=== PATIENT | female | born 1990 | race Caucasian/White ===

== ENCOUNTER 2018-07-08 14:36 | Emergency (ER) | payer MEDICAID, SELFPAY ==
[2018-07-08 14:37] VITALS: BP 142/94; PULSE 80; RESP 17; TEMP 36.9; O2SAT 97
[2018-07-08 14:38] VITALS: BP 142/92; PULSE 86; RESP 17; TEMP 36.9; O2SAT 95; BMI 44.9
--- NOTE | 2018-07-08 15:04 | EKG12_ITS ---
Test Reason : CP Blood Pressure : / mmHG Vent. Rate : 079 BPM Atrial Rate : 079 BPM P-R Int : 170 ms QRS Dur : 082 ms QT Int : 376 ms P-R-T Axes : 042 021 019 degrees QTc Int : 431 ms Normal sinus rhythm Normal ECG Confirmed by YELENA ROSALES MD ([id number]), dictionary editor JENNIFER KWON ([id number]) on 07/11/2018 10:16:56 AM Referred By: JACK
[2018-07-08] MEDS: 0.9% Normal Saline 1,000 ML 150 ML IV (15:10)
--- NOTE | 2018-07-08 15:10 | RAD_ITS ---
STUDY: X-RAY CHEST REASON FOR EXAM: Female, 27 years old. Chest pain. TECHNIQUE: Single AP portable view of the chest. COMPARISON: Comparison is made with prior study dated August 22, 2017. FINDINGS: EKG electrodes are seen. The lungs are clear and expanded. There is no demonstrated pleural abnormality. Normal size heart. Normal mediastinum and gustavo. Normal visualized pulmonary arteries. Normal visualized aortic arch and descending thoracic aorta. Normal visualized thoracic spine. Normal visualized ribs, clavicles, and shoulders. There is no demonstrated abnormality of the visualized soft tissue structures of the upper abdomen. RAD/Chest 1 View (Portable) IMPRESSION: Normal x-ray examination of the chest. Electronically Signed: Hector Suh MD at 15:27 EST Tel [phone], Service support ,
[2018-07-08 15:28] LABS: Absolute Lymphocyte Count 2.77 X10^3/ul (0.83-4.51); Absolute Neutrophil Count 6.7 X10^3/uL (2.0-7.7); Basophil# 0.03 X10^3/uL; Basophil% 0.3 % (0-1); Eosinophils% 1.9 % (0-5); Hematocrit 42.7 % (37-47); Hemoglobin 14.4 g/dl (12.0-15.0); Lymphocyte # 2.77 X10^3/ul (4.0); Lymphocyte % 26.7 % (19-41); Mean Corp Hgb Conc 33.7 g/gl (32-36); Mean Corpuscular Volume 91.8 fL (81-99); Mean Platelet Vol. 11.2 fl (6.2-12.0); Monocyte# 0.64 X10^3/uL; Monocyte% 6.2 % (0-10); Neutrophil # 6.72 X10^3/uL (2.7-7.7); Neutrophil % 64.7 % (47-70); Platelet Count 312 K/mm3 (150-450); RBC Distribution Width CV 13.2 % (11.6-14.6); RBC Distribution Width SD 43.7 fl (35.1-43.9); Red Blood Count 4.65 M/mm3 (4.2-5.4); White Blood Count 10.4 K/mm3 (4.4-11.0)
[2018-07-08 15:31] LABS: POSITIVE COUNT NO; POSITIVE DIFFERENTIAL NO; POSITIVE MORPHOLOGY NO
[2018-07-08 15:40] LABS: Anion Gap 6 (5-15); BUN 9 mg/dL (7-18); BUN/Creat Ratio 15.8 RATIO (10-20); Calcium,Total 8.9 mg/dL (8.5-10.1); Chloride 101 mmol/L (98-107); Creatinine, Serum 0.57 mg/dL (0.55-1.02); EST Glomerular Filtration Rate 134 mL/min (>60); Est Glom Filt Rate - Afr Amer 162 mL/min (>60); Estimated Creatinine Clearance 137.56 ml/min; Glucose 216 mg/dL (74-106); Potassium 3.8 mmol/L (3.5-5.1); Sodium Level 134 mmol/L (136-145)
[2018-07-08 15:50] LABS: Pregnancy, Serum, hCG Quali. NEGATIVE Negative (0-9 Nonpreg)
--- NOTE | 2018-07-08 16:03 | ED.VISSUMM ---
- ER Visit Summary Date of Service: 07/08/18 Chief Complaint: Chest pain History of Present Illness: The patient is a [address] Conde. She reports that today approximate 130 while she was at rest she had the onset of a left-sided chest pressure. She states that it was 8 out of 10 at worst. States pain is now 2 out of 10 severity and it is a dull, aching pain. States that this was worsened by exertion or breathing. It was relieved by nothing. She was nauseated and lightheaded with this. She denies any vomiting, diaphoresis, shortness of breath. Patient reports that this began after chugging an energy drink. Physical Examination: Vitals: Stable. Afebrile. General: Well-nourished and well-developed. Head: Normocephalic atraumatic. Neck: Supple, no lymphadenopathy. No JVD. Nontender. Cardiovascular: Regular rate and rhythm. No murmurs. Respiratory: No respiratory distress. Clear to auscultation bilaterally. Abdominal: Soft, nontender, nondistended, normal bowel sounds. No guarding, rebound, or peritoneal signs. Back: Nontender. Extremities: Nontender, no edema. Skin: Normal color, no rash. Neurologic: Alert and oriented ?3. Cranial nerves II through XII are intact. Normal strength and sensation. Psych: Normal affect. Test Results: EKG is sinus at 79 with no acute changes. Troponin is negative. test negative. Chem-7 more for sodium 134 and glucose 216. CBC is normal. Chest x-ray is normal. Emergency Department Course and Treatment: Patient rested comfortably while here. She refused pain or nausea medications. Treatment Plan: Patient be discharged instructions to follow-up with her primary care physician 1-2 days if not improving. Return to the emergency department for any worsening symptoms. Disposition: To home in improved and stable condition. Impression: 1. Atypical chest pain. 2. CHAVO score of 0. This note was generated with [employer] dictation software. It may contain incorrect words, spelling, and punctuation that were not noted in review of the chart prior to signing ED Disposition - Plan for ED Patient: Disposition: Home or Assisted Living Chief Complaint: Chest Pain Instructions: ED Chest Pain Atypical Unkn Cause Referrals: Bonilla Conde MD [Primary Care Provider] - As soon as possible
[2018-07-08 16:14] VITALS: BP 147/75; PULSE 81; RESP 16; O2SAT 98
--- OUTSIDE RECORDS SUMMARY | 2018-08-24 22:42 | XMS RPT_ITS ---
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 REPOSITORY Patient Outreach (FPWADS) SOLANGE VIVAR ([id number]) 1990 F Date Time Provider Department 01/22/18 AZEB CERVANTES) FPWADS During your visit today, we recorded the following information about you: Azeb Cervantes MA 01/22/2018 2:56 PM Signed Unable to contact patient. Spoke to Dr. Phillips and wants his name removed as her PCP. Azeb Cervantes MA Allergies As of Date: 01/22/2018 Noted Allergy Reaction BEES 08/26/2012 7 - Swelling Date Reviewed: 09/07/2016 Reviewed by: Iliana Anderson LPN - Fully Assessed Reason for Visit: PHMA/Care Gap Outreach [[id number]] Prescriptions as of 01/22/2018 Sig: CODEINE 10 MG-GUAIFENESIN 100* Take 5 mL by mouth three time* METFORMIN 500 MG TABLET Take 1 tablet by mouth twice * INSULIN DETEMIR (U-100) 100 U* Inject 10 Units subcutaneousl* PEN NEEDLE, DIABETIC 31 GAUGE* Use one needle per dose. NICOTINE 21 MG/24 HR DAILY TR* Apply 1 Patch as directed evan* Problem List As Of Date 01/22/2018 Noted Resolved ATTN DEFICIT W HYPERACT [F90.9] INVALID FOR* Excessive or frequent menstruation [N92.0] INVALID FOR*03/19/2016 Dysmenorrhea [N94.6] INVALID FOR*03/19/2016 Adult BMI >=40 Kg/Sq M INVALID FOR* Morbid obesity (HCC) [E66.01] INVALID FOR*03/19/2016 Impaired Glucose Tolerance [R73.02] INVALID FOR* Dysmetabolic Syndrome X [E88.81] INVALID FOR* Diabetes mellitus type 2, uncontrolled, without*INVALID FOR* More... Hypertension [I10] INVALID FOR* More... Pelvic pain in [O26.899, R10.2] INVALID FOR*12/29/2013 More... Tobacco use in [O99.330] INVALID FOR*12/29/2013 More... Family history of congenital heart defect [Z82.*INVALID FOR*03/19/2016 More... Obesity in [O99.210] INVALID FOR*03/19/2016 Abnormal ultrasound of breast [R92.8] INVALID FOR*03/19/2016 Short interval between pregnancies complicating*INVALID FOR*04/27/2014 More... History of [Z98.891] INVALID FOR*03/19/2016 More... Uncertain dates, antepartum [Z34.90] INVALID FOR*04/27/2014 More... Quit smoking [Z87.891] INVALID FOR*03/19/2016 More... Encounter Status:Closed by AZEB CERVANTES on 01/22/18 XR HUMERUS MINIMUM 2 Observed: 12/27/2017 Status: F Source: [facility] LEFT 7:07 PM [facility] REPOSITORY ORIGINAL XR HUMERUS MINIMUM 2 VIEWS LEFT CLINICAL STATEMENT: pain COMPARISON: None FINDINGS: No acute fracture or dislocation is identified. There is a remote deformity noted at the proximal humerus. There is no radiopaque foreign body. IMPRESSION: No acute fracture or dislocation. Proximal deformity of the humerus from reported previous trauma. I have personally reviewed the images of this examination and agree with the resident's findings and interpretation. Interpreted By: Chalino Shepherd DO Preliminary Report By: Kathy Olson MD Electronically Signed By: Chalino Shepherd DO Dictated Date: 12/27/2017 7:31:47 PM Prelim Date: 12/27/2017 7:32:56 PM Sign Date: 12/27/2017 7:39:29 PM XR SHOULDER MINIMUM 2 Observed: 12/27/2017 Status: F Source: [facility] LEFT 7:07 PM [facility] REPOSITORY ORIGINAL XR SHOULDER MINIMUM 2 VIEWS LEFT CLINICAL STATEMENT: pain/trauma/fall on hyperextended arm COMPARISON: None FINDINGS: There is no evidence of glenohumeral dislocation. The shoulder joint is unremarkable. The proximal humeral shaft appears irregular, secondary to remote healed trauma. Soft tissue structures are unremarkable. IMPRESSION: No evidence of shoulder dislocation. I have personally reviewed the images of this examination and agree with the resident's findings and interpretation. Interpreted By: Chalino Shepherd DO Preliminary Report By: Kathy Olson MD Electronically Signed By: Cora ,Chalino DO Dictated Date: 12/27/2017 7:28:34 PM Prelim Date: 12/27/2017 7:31:18 PM Sign Date: 12/27/2017 7:38:03 PM [facility] OFFICE VISIT Observed: 12/10/2017 Status: F Source: [place] 11:35 AM [facility] REPOSITORY [facility] [address] [place] [address] OFFICE VISIT Date of Service: 12/10/17 MR#: [id number] Acct: [id number] Name: SOLANGE VIVAR Rep #: [id number] : 1990 Provider: YOLANDA Sapp Age/Sex: 27/F Location: [facility] Status: Signed Intake Vital Signs12/10/17 Height 5 ft 5 in 12/10/17 Weight: 274 lb 2 oz 12/10/17 Body Mass Index (BMI) 45.6 12/10/17 Blood Pressure 143/93 Intake Visit Reasons: BLOCKED MILK DUCT Chief Complaint: Blocked Milk Duct Ophthalmic Surgeon Required: No Is patient in pain?: No Allergies venom-honey bee [bee venom (honey bee)] Allergy (Verified 12/10/17 11:10) Anaphylaxis Medications cephalexin 500 mg capsule 500 mg PO Q12H 10 Days #20 cap 12/10/17 [Rx Confirmed 12/10/17] Is last menstrual period known: Yes Last Menstral Period: 11/15/17 Post menopausal: No Patient : No : No PFSH Medical History Gestational diabetes (Acute) Surgical History delivery delivered (Acute) H/O tubal ligation (Acute) History of tonsillectomy (Acute) pins inserted in humerus (Acute) Family History Father Diabetes Hypertension Lupus Cancer bladder Grandfather Heart disease Social History Smoking Status: Never smoker alcohol intake: current details: social substance use type: does not use caffeine: Yes frequency: 3-4 times per week seatbelt use: always do you feel safe at home: Yes additional social history: Rolando- unemployed Patient works at [employer] HPI BLOCKED MILK DUCT : Details: SOLANGE VIVAR is a 27 year old who presents for pain, redness and swelling of right breast X 2 days. Has had abscess a year ago, same are, I AND D per Dr. Fernandez. Told may recur. Had normal imaging at that time. States always gets a lump in that area just prior to menses. Female Reproductive History Last Menstral Period: 11/15/17 Pregancy History 2 Elective abortions Hx Para 2 Spontaneous abortions Past Pregnancies Del. DatName AR/WeeksOutcome Route [facility] Dandy Williamson LgAnesthesDel LocaProviderFOB e ht en th ia tn Unknown 2012 Ada nna Unknown 2013 [place] Exam Chest Other: Right breast: outer lateral area from 1-5:00 position of areola and out 4cm erythematous, indurated and warm to tough. No fluctuance. Assessment AND Plan Problems 1. Abscess of right breast N61.1 Plan Keflex Rx Warm compresses OTC pain meds Call if worsens or does not respond 48 hours. Medications New: Coding Level of Care Code Off vis,est,level 3 Diagnoses Abscess of right breast N61.1 12/10/17 1135 <Electronically signed by Mali OHARA> Date Mali OHARA Cosigner Signature: Date (if applicable) CC: CNCO Observed: 12/05/2017 Status: COMPLETED Source: [place] 12:00 AM [facility] REPOSITORY Letter Text Dr. Bonilla Phillips [facility] [address] [facility] Office: December 05, 2017 Solange Vivar [address] [facility] [address] Dear Ms. Vivar, Our office has been attempting to reach you by telephone and we were not successful. The phone number we have on file for you is [phone] (home) . We have identified some questions that we would like to discuss to make sure that your health is fully optimized, so I have asked Azeb Cervantes MA to contact you to discuss this further. Please contact her at the direct line listed below at your first convenience to update your demographic information and to discuss your health status. As your primary care physician, I would like to urge you to keep up with optimal health care. Keeping up to date with routine preventive care and best practices can greatly reduce your risk of a brain or heart attack, colon cancer, breast cancer, heart disease, high blood sugar complications and more. Our team is very happy to assist you with discussing or scheduling anything you need. If for any reason you have established with a new primary care physician, please notify my office so that we can update our records to prevent any further erroneous communications to you. Thank you for allowing us to be involved in your care. Sincerely, Fransisco Phillips MD (Signed electronically to expedite mailing) CT SINUS Observed: 10/16/2017 Status: F Source: [facility] 3:25 PM [facility] REPOSITORY ORIGINAL CT SINUS CLINICAL STATEMENT: Clear nose drainage.. COMPARISON: None TECHNIQUE: Axial CT slices through the sinuses were acquired without the administration of IV contrast. Bone and soft tissue algorithms. Coronal and sagittal reformats. This exam was performed according to our departmental dose optimization program, and includes the following measures where applicable: automated exposure control, adjustment of the mAs and/or kVp according to patient size and/or exam, and an iterative reconstruction algorithm. FINDINGS:The cribriform plate and lateral lamella are unremarkable. The tegmen appears intact. Right: The frontal sinus is clear and the frontal outflow tract is patent. There is a rightward draining interfrontal sinus septal cell. There is no significant mucosal thickening within the ethmoid air cells. The maxillary sinus contains a large polyp or mucous retention cyst and a small amount of aerated secretions. The maxillary outflow tract is patent. The sphenoid sinus is clear. The sphenoid ostium and sphenoethmoidal recess are clear. Left: The frontal sinus is clear and the frontal outflow tract is patent. There is no significant mucosal thickening within the ethmoid air cells. The maxillary sinus and the maxillary outflow tract is patent. The sphenoid sinus is clear. The sphenoid ostium and sphenoethmoidal recess are clear. There are no air-fluid levels or osteoneogenesis. No nasal masses. The nasal septum is deviated to the right without a spur. The retroantral and premaxillary fat are preserved. The right upper extremity is aerated. IMPRESSION: 1. Small amount of aerated secretions in the right maxillary sinus, which can be seen in acute sinusitis. There is also a large right maxillary mucous retention cyst or polyp. 2. If there is concern for CSF rhinorrhea, testing of the fluid for beta-2 transferrin should be considered. Interpreted By: Richard Cárdenas Preliminary Report By: Richard Cárdenas Electronically Signed By: Richard Cárdenas Dictated Date: 10/16/2017 3:46:57 PM Prelim Date: 10/16/2017 3:46:57 PM Sign Date: 10/16/2017 3:55:[address] HEAD OR BRAIN W/O Observed: 10/16/2017 Status: F Source: [facility] CONTRAST 3:25 PM [facility]POS[facility] ORIGINAL Head CT 10/16/2017 3:41 PM INDICATION: Clear nose drainage. COMPARISON: No TECHNIQUE: Routine non-contrast head CT. This exam was performed according to our departmental dose optimization program, and includes the following measures where applicable: automated exposure control, adjustment of the mAs and/or kVp accord ing to patient size and/or exam, and an iterative reconstruction algorithm. FINDINGS: The ventricles and sulci are normal in size and configuration. There is no shift of midline structures. There are no abnormal intra or extra-axial fluid collections. Ghosh-white matter differentiation is maintained. The orbital contents are normal in appearance. There is right maxillary sinus disease. The calvaria and the bones of the base of the skull are intact. IMPRESSION: Normal examination. Interpreted By: Connor Dhillon MD Preliminary Report By: Connor Dhillon MD Electronically Signed By: Connor Dhillon MD Dictated Date: 10/16/2017 3:42:11 PM Prelim Date: 10/16/2017 3:42:11 PM Sign Date: 10/16/2017 3:42:55 PM PROGRESS Observed: 10/08/2017 Status: COMPLETED Source: [place] 8:[address] [facility] REPOSITORY HNO ID: [id number] Author: Azeb Cervantes Service: (none) Author Type: Human Resources Trainee Type: Progress Notes Filed: 10/08/2017 8:36 AM Note Text: Received Receipt from certified letter.[id number] PROGRESS Observed: 09/27/2017 Status: COMPLETED Source: [place] 12:[address] [facility] REPOSITORY HNO ID: [id number] Author: Azeb Cervantes Service: (none) Author Type: Human Resources Trainee Type: Progress Notes Filed: 09/27/2017 1:01 PM Note Text: Mail Certified letter PROGRESS Observed: 09/27/2017 Status: COMPLETED Source: [place] 12:[address] [facility] REPOSITORY HNO ID: [id number] Author: Azeb Cervantes Service: (none) Author Type: Human Resources Trainee Type: Progress Notes Filed: 09/27/2017 1:01 PM Note Text: Unable to leave message voice mail is not setup PROGRESS Observed: 09/25/2017 Status: COMPLETED Source: [place] 12:55 PM [facility] REPOSITORY HNO ID: [id number] Author: Azeb Cervantes Service: (none) Author Type: Human Resources Trainee Type: Progress Notes Filed: 09/27/2017 1:01 PM Note Text: Unable to leave message voice mail is not setup PROGRESS Observed: 09/24/2017 Status: COMPLETED Source: [place] 3:[address] [facility] REPOSITORY HNO ID: [id number] Author: Fransisco Phillips Service: (none) Author Type: Physician Type: Progress Notes Filed: 09/27/2017 1:01 PM Note Text: Encounter Diagnosis ICD-10-CM 1. Uncontrolled type 2 diabetes mellitus without complication, without long-term current use of insulin (HCC) E11.65 HGB A1C ALBUMIN/CREAT RATIO RND UR COMP METABOLIC PANEL 2. Essential hypertension I10 COMP METABOLIC PANEL 3. Screening for hyperlipidemia Z13.220 LIPID PANEL BASIC Labs ordered. Fransisco Phillips MD PROGRESS Observed: 09/24/2017 Status: COMPLETED Source: [place] 1:[address] [facility] REPOSITORY HNO ID: [id number] Author: Azeb Cervantes Service: (none) Author Type: Human Resources Trainee Type: Progress Notes Filed: 09/27/2017 1:01 PM Note Text: PHMA TEAMLET DOCUMENTATION Provider Action/FYI: patient needs appointment schedule needs labs ordered, needs Foot and Eye exam PSR Action/FYI: Teamlet has identified patient by name and date of . Team: Dr. Fariba Cervantes ? Last Office Visit:08/23/2017 ? Next Office Visit: Visit date not found ? Last BP/Labs: Blood Pressure: Last 3 Encounter BP Readings: Date: BP: 09/07/2016 124/74 08/02/2016 122/76 05/01/2016 130/80 Lipids: No results found for: CHOL No results found for: HDL LDL CholGen (mg/dL) Date Value 10/26/2009 61 No results found for: TG HGB A1C: Lab Results Component Value Date HBA1C 10.6 03/20/2016 HBA1C 5.5 08/08/2012 HBA1C 5.8 07/17/2011 HBA1C 7.7 04/25/2010 TSH: TSH (uU/mL) Date Value 03/20/2016 1.340 07/17/2011 1.210 ) Care Gap: DM - Need Urine Albumin / NOT checked in last 12 months Needs dilated eye exam - HM overdue Last HGBA1C is NOT under 9% Plan: ? Confirm PCP / Status ? Type of appointment needed: HERRERA ? Consultation Appointments ? Labs, HM and Immunization: Labs: Albumin Creatinine Urine CMP HGB A1C Lipids Immunizations Diabetic Eye Exam Diabetic Foot Exam Azeb Cervantes MA CNPTOUTREACH Observed: 09/24/2017 Status: COMPLETED Source: [place] 12:[address] [facility] REPOSITORY Patient Outreach (FPWADS) SOLANGE VIVAR ([id number]) 1990 F Date Time Provider Department 09/24/17 AZEB CERVANTES (MALIK) FPWADS During your visit today, we recorded the following information about you: Azeb Cervantes MA 09/27/2017 1:01 PM Signed PHMA TEAMLET DOCUMENTATION Provider Action/FYI: patient needs appointment schedule needs labs ordered, needs Foot and Eye exam PSR Action/FYI: Teamlet has identified patient by name and date of . Team: Dr. Fariba Cervantes ? Last Office Visit:08/23/2017 ? Next Office Visit: Visit date not found ? Last BP/Labs: Blood Pressure: Last 3 Encounter BP Readings: Date: BP: 09/07/2016 124/74 08/02/2016 122/76 05/01/2016 130/80 Lipids: No results found for: CHOL No results found for: HDL LDL Chol, Gen (mg/dL) Date Value 10/26/2009 61 No results found for: TG HGB A1C: Lab Results Component Value Date HBA1C 10.6 03/20/2016 HBA1C 5.5 08/08/2012 HBA1C 5.8 07/17/2011 HBA1C 7.7 04/25/2010 TSH: TSH (uU/mL) Date Value 03/20/2016 1.340 07/17/2011 1.210 ) Care Gap: DM - Need Urine Albumin / NOT checked in last 12 months Needs dilated eye exam - HM overdue Last HGBA1C is NOT under 9% Plan: ? Confirm PCP / Status ? Type of appointment needed: HERRERA ? Consultation Appointments ? Labs, HM and Immunization: Labs: Albumin Creatinine Urine CMP HGB A1C Lipids Immunizations Diabetic Eye Exam Diabetic Foot Exam MALIK Bautista MD 09/27/2017 1:01 PM Signed Encounter Diagnosis ICD-10-CM 1. Uncontrolled type 2 diabetes mellitus without complication, without long-term current use of insulin (HCC) E11.65 HGB A1C ALBUMIN/CREAT RATIO RND UR COMP METABOLIC PANEL 2. Essential hypertension I10 COMP METABOLIC PANEL 3. Screening for hyperlipidemia Z13.220 LIPID PANEL BASIC Labs ordered. MD Azeb Baum MA 09/27/2017 1:01 PM Signed Unable to leave message voice mail is not setup Azeb Cervantes MA 09/27/2017 1:01 PM Signed Unable to leave message voice mail is not setup Azeb Cervantes MA 09/27/2017 1:01 PM Signed Mail Certified letter Azeb Cervantes MA 10/08/2017 8:36 AM Signed Received Receipt from certified letter.3-18 Allergies As of Date: 09/24/2017 Noted Allergy Reaction BEES 08/26/2012 7 - Swelling Date Reviewed: 09/07/2016 Reviewed by: Iliana Anderson LPN - Fully Assessed Reason for Visit: PHMA/Care Gap Outreach [[id number]] Primary Visit Diagnosis:Uncontrolled type 2 diabetes mellitus without complication, without long-term current use of insulin (HCC) [E11.65] Other Visit Diagnoses:Essential hypertension [I10] Screening for hyperlipidemia [Z13.220] Order(s):HGB A1C [[id number]] Order #: [id number] FUTURE ALBUMIN/CREAT RATIO RND UR [SQUACR] Order #: [id number] FUTURE LIPID PANEL BASIC [SQLIPB] Order #: [id number] FUTURE COMP METABOLIC PANEL [SQCMP] Order #: [id number] FUTURE Prescriptions as of 09/24/2017 Sig: CODEINE 10 MG-GUAIFENESIN 100* Take 5 mL by mouth three time* METFORMIN 500 MG TABLET Take 1 tablet by mouth twice * INSULIN DETEMIR (U-100) 100 U* Inject 10 Units subcutaneousl* PEN NEEDLE, DIABETIC 31 GAUGE* Use one needle per dose. NICOTINE 21 MG/24 HR DAILY TR* Apply 1 Patch as directed evan* Problem List As Of Date 09/24/2017 Noted Resolved ATTN DEFICIT W HYPERACT [F90.9] INVALID FOR* Excessive or frequent menstruation [N92.0] INVALID FOR*03/19/2016 Dysmenorrhea [N94.6] INVALID FOR*03/19/2016 Adult BMI >=40 Kg/Sq M INVALID FOR* Morbid obesity (HCC) [E66.01] INVALID FOR*03/19/2016 Impaired Glucose Tolerance [R73.02] INVALID FOR* Dysmetabolic Syndrome X [E88.81] INVALID FOR* Diabetes mellitus type 2, uncontrolled, without*INVALID FOR* More... Hypertension [I10] INVALID FOR* More... Pelvic pain in [O26.899, R10.2] INVALID FOR*12/29/2013 More... Tobacco use in [O99.330] INVALID FOR*12/29/2013 More... Family history of congenital heart defect [Z82.*INVALID FOR*03/19/2016 More... Obesity in [O99.210] INVALID FOR*03/19/2016 Abnormal ultrasound of breast [R92.8] INVALID FOR*03/19/2016 Short interval between pregnancies complicating*INVALID FOR*04/27/2014 More... History of [Z98.891] INVALID FOR*03/19/2016 More... Uncertain dates, antepartum [Z34.90] INVALID FOR*04/27/2014 More... Quit smoking [Z87.891] INVALID FOR*03/19/2016 More... Follow-up and Disposition History Recorded Letter Text Fransisco Phillips MD [address] [facility] [address] [phone] Azeb Cervantes MA, [facility] M.A. September 27, 2017 Solange Dallas Ghazala [address] [facility] [address] Dear Mr. Vivar In an effort to serve your healthcare needs, it has come to the attention of Fransisco Phillips MD, your Primary Care Provider, that you are overdue for routine health care. We've attempted to contact you and have been unsuccessful. Please call the office at [phone] to schedule an appointment for Follow Up. In addition, you are due for the following health maintenance Health Maintenance Due: DILATED RETINAL EXAM due on 1990 URINE ALBUMIN CREATININE RATIO due on 2005 DIABETIC FOOT EXAM due on 2005 ONE PNEUMOVAX PRIOR TO AGE 65 due on 2005 LDL due on 10/26/2010 PAP EVERY 3 YEARS (21-30 YEAR OLDS) due on 03/23/2016 HBA1C due on 09/20/2016 INFLUENZA(1) due on 03/29/2017 If any of these routine health care items were completed by an outside facility, please have that office fax the results to [phone] Attn: Fransisco Phillips MD or bring the records with you to your appointment. We will gladly update your record. If you have any questions, please feel free to call the office at [phone] or message us via [employer]. Thank you for choosing the [facility]. Sincerely, Azeb Cervantes MA, [facility] M.A. (electronically signed to expedite mailing) Encounter Status:Closed by AZEB CERVANTES on 09/27/17 12 LEAD ELECTROCARDIOGRAM Observed: 08/27/2017 Status: F Source: [place] 10:14 AM [facility] REPOSITORY [facility] [address] [place] [address] 12 Lead EKG 08/22/17 1306 MR#: [id number] Acct: [id number] Name: GHAZALAALMA DELIASOLANGE LEX Rep #: [id number] : 1990 27 From: Lawrence Jensen MD Attending Dr: Status: DEP ER Ordering Dr: Provider, Ed P. Date: 08/22/17 Location: ED Sex: F C Admitted: Test Reason : CP Blood Pressure : / mmHG Vent. Rate : 100 BPM Atrial Rate : 100 BPM P-R Int : 160 ms QRS Dur : 078 ms QT Int : 338 ms P-R-T Axes : 076 023 029 degrees QTc Int : 436 ms Normal sinus rhythm Normal ECG Confirmed by LAWRENCE JENSEN ([id number]), editorial director JENNIFER KWON ([id number]) on 08/27/2017 10:14:13 AM Referred By: ALEN/DIVINA Confirmed By:LAWRENCE JENSEN 08/27/17 1014 Date Lawrence Jensen MD CC: Bonilla Phillips MD Signed CNPN Observed: 08/23/2017 Status: COMPLETED Source: [place] 12:[address] [facility] REPOSITORY Telephone (FPWADS) SOLANGE VIVAR ([id number]) 1990 F Date Time Provider Department 08/23/17 FRANSISCO PHILLIPS During your visit today, we recorded the following information about you: Abdi Tay 08/28/2017 11:26 AM Addendum Received 08/22/17 ED summary for chest pain, EKG and XR chest from [facility]. Placed in pcps inbox for review. Route to [place] for scanning. Marie Graves Ma 08/29/2017 2:33 PM Signed Sent to scanning Allergies As of Date: 08/23/2017 Noted Allergy Reaction BEES 08/26/2012 7 - Swelling Date Reviewed: 09/07/2016 Reviewed by: Iliana Anderson LPN - Fully Assessed Reason for Visit: ED Summary, EKG and XR Report [Other] Cmt: [facility] 08/22/17 Reason For Visit History Recorded Prescriptions as of 08/23/2017 Sig: CODEINE 10 MG-GUAIFENESIN 100* Take 5 mL by mouth three time* METFORMIN 500 MG TABLET Take 1 tablet by mouth twice * INSULIN DETEMIR 100 UNIT/ML (* Inject 10 Units subcutaneousl* PEN NEEDLE, DIABETIC 31 GAUGE* Use one needle per dose. NICOTINE 21 MG/24 HR DAILY TR* Apply 1 Patch as directed evan* Problem List As Of Date 08/23/2017 Noted Resolved ATTN DEFICIT W HYPERACT [F90.9] INVALID FOR* Excessive or frequent menstruation [N92.0] INVALID FOR*03/19/2016 Dysmenorrhea [N94.6] INVALID FOR*03/19/2016 Adult BMI >=40 Kg/Sq M INVALID FOR* Morbid obesity (HCC) [E66.01] INVALID FOR*03/19/2016 Impaired Glucose Tolerance [R73.02] INVALID FOR* Dysmetabolic Syndrome X [E88.81] INVALID FOR* Diabetes mellitus type 2, uncontrolled, without*INVALID FOR* More... Hypertension [I10] INVALID FOR* More... Pelvic pain in [O26.899, R10.2] INVALID FOR*12/29/2013 More... Tobacco use in [O99.330] INVALID FOR*12/29/2013 More... Family history of congenital heart defect [Z82.*INVALID FOR*03/19/2016 More... Obesity in [O99.210] INVALID FOR*03/19/2016 Abnormal ultrasound of breast [R92.8] INVALID FOR*03/19/2016 Short interval between pregnancies complicating*INVALID FOR*04/27/2014 More... History of [Z98.891] INVALID FOR*03/19/2016 More... Uncertain dates, antepartum [Z34.90] INVALID FOR*04/27/2014 More... Quit smoking [Z87.891] INVALID FOR*03/19/2016 More... Encounter Status:Closed by ABDI SHIRLEY on 08/23/17 EMERGENCY DEPARTMENT Observed: 08/22/2017 Status: F Source: GEN SUMMARY 4:50 PM [facility] REPOSITORY [facility] Medical Records Department [address] [place] [address] Emergency Department Summary 08/22/17 1526 MR#: [id number] Acct: [id number] Name: SOLANGE VIVAR Rep #: [id number] : 1990 27 From: Gordon Manzo MD PCP: Bonilla Phillips MD Status: DEP ER - ER Visit Summary Date of Service: 08/22/17 Chief Complaint: Chest pain History of Present Illness: The patient is a [address] Phillips. She reports that she got in an argument with her . Shortly thereafter she was talking with a coworker and crying and became very anxious. She developed a substernal chest pain that she describes as sharp and stabbing. It is been constant since that time. Is 8 out of 10 at worst and is 3 out of 10 currently. Is worsened by nothing including exertion periods relieved by nothing. She denies any associated nausea, vomiting, shortness of breath, or diaphoresis. Patient denies any chest pain with exertion or change in dyspnea exertion in the past month. Physical Examination: Vitals: Stable. Afebrile. General: Well-nourished and well-developed. Head: Normocephalic atraumatic. Neck: Supple, no lymphadenopathy. No JVD. Nontender. Cardiovascular: Regular rate and rhythm. No murmurs. Respiratory: No respiratory distress. Clear to auscultation bilaterally. Abdominal: Soft, nontender, nondistended, normal bowel sounds. No guarding, rebound, or peritoneal signs. Back: Nontender. Extremities: Nontender, no edema. Skin: Normal color, no rash. Neurologic: Alert and oriented 3. Cranial nerves II through XII are intact. Normal strength and sensation. Psych: Normal affect. Test Results: EKG is sinus at 100 with no acute changes troponin is negative. Chem-7 is marked for glucose of 351. CBC is marked for white count 11.3, hemoglobin 15.9, segmented neutrophils of 71. Chest x-ray is normal. Emergency Department Course and Treatment: Patient refused pain medications while here. I did discuss her elevated blood sugar with her. She reports that she has not been taking her Levemir. Treatment Plan: Patient's pain is very atypical. At this time I feel that she is a suitable candidate for further outpatient evaluation. She will be discharged instructed to follow-up her primary care physician 1-2 days not improving. Return to the emergency department for any worsening symptoms. Disposition: To home in improved and stable condition. Impression: 1. Atypical chest pain. 2. CHAVO score of 0. This note was generated with Desecuritrexation software. It may contain incorrect words, spelling, and punctuation that were not noted in review of the chart prior to signing ED Disposition - Plan for ED Patient: Disposition: Home or Assisted Living Chief Complaint: Chest Pain Instructions: ED Chest Pain Atypical Unkn Cause Referrals: Bonilla Phillips MD [Primary Care Provider] - 1-2 Days if not improving What to do if you have Problems For any increased pain, shortness of breath, bleeding, nausea or vomiting, chest pain, or any unexpected problems, contact your Primary Care Provider. Call [facility] ([phone]) or report to the closest Emergency Room. Call 911 if necessary. 08/22/17 1650 <Electronically signed by Gordon Manzo MD> Date Gordon Manzo MD Cosigner Signature (If Indicated): Date CC: Bonilla Phillips MD CBC W/DIFF, AUTOMATED Collected: 08/22/2017 Status: F Source: GEN 2:10 PM [facility] REPOSITORY TYPE CODE TESTS RESULT OUT OF RANGE REFERENCE UNITS LAB L100.1000 4.4-11.0 K/mm3 High WBC 11.3 LAB L100.1200 4.2-5.4 M/mm3 Normal RBC 4.94 LAB L100.1300 12.0-15.0 g/dl High HGB 15.9 LAB L100.1400 37-47 % Normal HCT 46.1 LAB L100.1500 81-99 fL Normal MCV 93.3 LAB L100.1600 27.0-32.0 pg High MCH 32.2 LAB L100.1700 32-36 g/gl Normal MCHC 34.5 LAB L100.1810 11.6-14.6 % Normal RDW CV 13.2 LAB L100.1820 35.1-43.9 fl High RDW SD 44.0 LAB L100.1900 150-450 K/mm3 Normal PLT 300 LAB L100.2000 6.2-12.0 fl Normal MPV 12.0 LAB L100.2100 47-70 % High NEUT% 71.0 LAB L100.2200 19-41 % Normal LY% 21.4 LAB L100.2300 0-10 % Normal MONO% 5.2 LAB L100.2400 0-5 % Normal EO% 1.7 LAB L100.2500 0-1 % Normal BASO% 0.3 LAB L100.2550 0.0-0.9 % Normal IM GRAN % 0.400 Result Comment: IG% - Immature Granulocytes (promyelocytes, myelocytes and metamyelocytes) > 1% indicates that a LEFT SHIFT is Present. LAB L100.2620 2.0-7.7 X10 3/uL High Absolute Neut 8.0 LAB L100.2720 0.83-4.51 X10 3/ul Normal Absolute Lymph 2.42 Performed By: #### L100.0100, L500.2500, L501.4010 #### [facility] [address] [place], [address] BASIC METABOLIC Collected: 08/22/2017 Status: F Source: [facility] ([facility]) 2:10 PM [facility] REPOSITORY Order Comment: 'TROP' Serial specimen #1, #2, #3, or #4: 1 TYPE CODE TESTS RESULT OUT OF RANGE REFERENCE UNITS LAB L501.0100 70-110 mg/dL High GLU 351 Result Comment: Glucose result greater than or equal to 200 mg/dL suggests DIABETES MELLITUS per A.D.A. criteria. LAB L501.1000 7-18 mg/dL Normal BUN 9 LAB L501.1100 0.55-1.02 mg/dL Normal CREAT,SERUM 0.78 Result Comment: The validity of the calculated GFR AND GFRAA in patients over 70 years has not been determined. Clinical correlation is essential. LAB L501.1110 >60 mL/min Normal EST GFR 94 Result Comment: Non- GFR Calc LAB L501.1115 >60 mL/min Normal EST GFR - AA 114 Result Comment: GFR Calc LAB L501.1255 ml/min Normal Estimated CRCL 100.52 LAB L501.1300 10-20 RATIO BUN/CRE Normal 11.6 LAB L501.2200 8.5-10 mg/dL .1 CA Normal 9.3 LAB L501.5300 136-14 mmol/L 5 NA Normal 136 LAB L501.5600 3.5-5. mmol/L 1 K Normal 4.5 Result Comment: Slight Hemolysis, Result may be falsely increased. LAB L501.5900 98-107 mmol/L Normal CL 100 LAB L501.6100 21.0-32.0 mmol/L Normal CO2 28.0 LAB L501.6200 5-15 Normal 8 GAP Performed By: #### L100.0100, L500.2500, L501.4010 #### [facility] [address] [facility] [address] [place], [place], [address] TROPONIN-I Collected: 08/22/2017 Status: F Source: [place] 2:10 PM [facility] REPOSITORY Order Comment: 'TROP' Serial specimen #1, #2, #3, or #4: 1 TYPE CODE TESTS RESULT OUT OF RANGE REFERENCE UNITS LAB L501.4010 <0.06 ng/mL Normal < 0.02 TROPONIN-I Result Comment: TROPONIN-I EXPECTED VALUES <0.05 NEGATIVE 0.06 - 0.59 AT RISK OF NE > OR = 0.60 SUGGEST NE Performed By: #### L100.0100, L500.2500, L501.4010 #### [facility] [address] [place], [place], [address] CHEST PA AND LATERAL Observed: 08/22/2017 Status: F Source: [facility] 1:06 PM [facility] REPOSITORY [facility] Imaging Services [address] [place] [address] Chest PA and Lateral MR#: [id number] Acct: [id number] Name: SOLANGE VIVAR Rep #: [id number] : 1990 F 27 From: Hector Suh MD PCP: Bonilla Phillips MD Status: PRE ER Study: Chest PA and Lateral Date of Exam: 08/22/17 Exam# [id number] Ordering Dr: Provider, Ed P. STUDY: X-RAY CHEST REASON FOR EXAM: Female, 27 years old. Sudden onset of chest pain and chest tightness. TECHNIQUE: PA and lateral views of the chest. COMPARISON: Comparison is made with prior study dated March 09, 2011. FINDINGS: The lungs are clear and expanded. There is no demonstrated pleural abnormality. Normal size heart. Normal mediastinum and gustavo. Normal visualized pulmonary arteries. Normal visualized aortic arch and descending thoracic aorta. There are degenerative changes of the visualized thoracic spine. Normal visualized ribs, clavicles, and shoulders. There is no demonstrated abnormality of the visualized soft tissue structures of the upper abdomen. RAD/Chest PA and Lateral IMPRESSION: Normal x-ray examination of the chest. Electronically Signed: Hector Suh MD at 14:07 EST Tel [phone], Service support , CC: ED PHYSICIAN PROVIDER; Bonilla Phillips MD Jewish History Professor: Signed ALLERGIES ALLERGIES DATE TYPE / CODE NAME / CODE REACTION SEVERITY SOURCE 12/10/2017 Drug venom-honey Anaphylaxis Unknown [facility] Allergy/4160 bee/[id number] [facility] 47392(SNOMED 698(RXNORM) Repository CT) 08/26/2012 Environ/4201 BEES SWELLING [facility] 55590(SNOMED [place] [address]) Repository ENCOUNTERS ENCOUNTERS ADMIT/DISCHARGE ACCOUNT NUMBER ADMITTING ENCOUNTER LOCATION SOURCE CLASS 07/08/2018/12/11 [id number] Emergency [place] [facility] ding:ED Repository 03/24/2018/03/24/20 [id number] Ambulatory BBuilding:RA Karen [facility] Repository 03/24/2018/03/24/20 [id number] Ambulatory KAREN Nielson [address] [place] [address] ding:[facility] Repository 03/06/2018/03/07/20 [id number] Ambulatory [address] Repository 03/05/2018/03/05/20 [id number] Emergency BBuilding:ER Karen [facility] Repository 12/27/2017/12/28/19 [id number] Emergency BBuilding:ER Kaern [facility] Repository 12/10/2017/12/11/19 [id number] Ambulatory BMSBuilding: Gen 18 [facility] Repository 10/16/2017/10/17/19 [id number] Emergency BBuilding:ER Karen [facility] Repository 10/16/2017/10/17/19 [id number] Emergency BBuilding:ER Karen [facility] Repository 08/22/2017/08/22/19 [id number] Emergency Gen [place] [facility] ding:ED Repository PAYERS PAYERS ENCOUNTER GUARANTOR PAYER SUBSCRIBER SOURCE 07/08/2018 SOLANGE Blevins [id number] [address] Insurance:JOE POSEY: [facility] [id number] [facility] Number: Repository [id number]: [phone] [id number] [phone] () Date:[id number] [address] [place] [address]LV: 07/08/2018 Secondary NOT GIVENUNK [place] Insurance:SELF PAY [facility] Number: Effective Repository Date:2018-07-08 03/24/2018 SOLANGE [place] Primary Insurance:YADIRA [place] [facility] BALDOB: Nikolay BLANDB: [facility] W Number: [id number] Repository [place] [id number] [address] [place] Date:2017-02-09 [place] [address]Pes: [phone] [id number]: Name:APO Julio [phone] (HP)Tel: [phone] [place] (HP) (WP) [phone]: (WP) [phone] 03/05/2018 [facility] [id number] Repository [place] Number: [address] [place] [id number] [place] [address]Ioy: [phone]) Date:2018-03-05 [address]Cpq: [id number] [phone] (HP)Tel: [phone]) Name:XPO Box (HP) (WP) [place], [place] 000[address] (WP) [phone]: 12/27/2017 [facility]E [facility] [id number] Repository [place] Number: [address] [place] [id number] [facility] [place], [place] [address]Ncq: [phone]) Date:2017-12-27Tel: [id number] [phone] (HP)Tel: [phone]) Name:XPO Box (HP) (WP) 6200[facility] [place] [place] [address] (WP) [phone]: 12/10/2017 SOLANGE LEX [facility] SOLANGE Blevins [id number] W Insurance:BUCKEYE MCELROYDOB: [facility] [id number] Number: Repository [address]Pai: [phone] [id number] [phone] (HP) Date:[id number] [address] [place] [address]SA: 12/10/2017 Secondary NOT GIVENUNK Gen Insurance:SELF PAY [facility] Number: Effective Repository Date:2017-12-10 10/16/2017 [facility] Insurance:BUCKFERNANDOE MCELROYDOB: [facility] [id number] Repository [place] Number: [place], [place] [id number] [place], [place] [address]Wwb: [phone]) Date:2017-10-16Tel: [id number] [phone] (HP)Tel: [phone]) Name:XPO Box (HP) (WP) [address] [place] [address] (WP) [phone]: 10/16/2017 [facility]: [facility]:BUCKEYE MCELROYDOB: [facility] [id number] Repository [place] Number: [address] [place], [place] [id number] [place], [place] [address]Aug: (330) Date:2017-10-16Tel: [id number] [phone] (HP)Tel: [phone]) Name:XPO Box (HP) (WP) [facility], [place] [address] (QA) [phone]: 08/22/2017 SOLANGE BURNETT [facility] Khanh McelroyDOB: Gen [id number] W Insurance:ANTHEMPolic [id number] [facility] y Number: [place], [place] [id number] Repository [address]Kwq: 330) Date:[id number] [phone] () [address], [place] [address]UY: 08/22/2017 Secondary NOT GIVENUNK [place] Insurance:SELF PAY [facility] Number: Effective Repository Date:2017-08-22
== END 2018-07-08 16:16 | disposition home or self-care (01) ==
LOC: ED 15:13
PROVIDERS: Emergency Provider Emergency Medicine; Family Provider Family Medicine; PCP Family Medicine
DX: R07.89 Other chest pain (principal); Z72.0 Tobacco use
CPT/HCPCS: 71045; 80048; 84484; 84703; 85025; 93005; 96360; 99285; J7030

== ENCOUNTER → 2018-09-24 08:02 | Outpatient (CLI) | payer MEDICAID, SELFPAY ==
[2018-09-23 14:23] VITALS: BMI 44.9
== END ==
PROVIDERS: Family Provider Family Medicine; PCP Family Medicine; Referring Provider Surgery; Visit Provider Surgery
DX: N61.1 Abscess of the breast and nipple (principal)

== ENCOUNTER → 2018-09-29 10:48 | Outpatient (CLI) | payer MEDICAID, SELFPAY ==
[2018-09-23 14:23] VITALS: BMI 44.9
--- NOTE | 2018-09-29 10:50 | US_ITS ---
STUDY: ULTRASOUND BREAST - RIGHT REASON FOR EXAM: Female, 28 years old. Palpable lump in the right breast. TECHNIQUE: Axial and longitudinal images of the RIGHT breast were performed with a high resolution ultrasound transducer. COMPARISON: None. FINDINGS: RIGHT Breast: The [place] corresponds to a 1.1 cm x 2.1 cm x 0.5 cm hypoechoic linear area just deep to the skin. A tract is seen tracking to the nipple. A fluid collection measuring 1.1 cm x 0.7 cm x 1.1 cm seen at that site. This is at the 9:00 position of the breast. US/Breast Limited Unilateral IMPRESSION: The palpable abnormality corresponds to a 1.1 cm x 2.1 cm x 0.5 cm hypoechoic area with a tract leading to the nipple. This is just deep to the skin surface. This may represent an infected sebaceous cyst. Clinical correlation is recommended. ASSESSMENT CATEGORY: BIRADS Category 2: Benign. A letter regarding these results will be sent to the patient by the facility within 30 days. Electronically Signed: Hector Suh, at 13:58 EST , Service support ,
== END ==
PROVIDERS: Family Provider Family Medicine; PCP Family Medicine; Referring Provider Surgery; Visit Provider Surgery
DX: N61.1 Abscess of the breast and nipple (principal); N64.4 Mastodynia
CPT/HCPCS: 76641; 76642

== ENCOUNTER → 2019-03-02 13:03 | Outpatient (CLI) | payer MEDICAID, SELFPAY ==
[2019-03-02 09:42] VITALS: BMI 44.9
[2019-03-02 15:44] LABS: Chlamydia Trachomatis by PCR Negative (Negative); Neisserai gonorrhoeae by PCR Negative (Negative); Probe Check PASS; Sample Adequacy Control PASS; Specimen Processing Control PASS
[2019-03-04 13:01] LABS: HPV Reflexed? NOT INDICATED
== END ==
PROVIDERS: Family Provider Family Medicine; PCP Family Medicine; Referring Provider Nurse Practitioner Women's Health; Visit Provider Nurse Practitioner Women's Health
DX: Z12.4 Encounter for screening for malignant neoplasm of cervix (principal); N76.0 Acute vaginitis; A64 Unspecified sexually transmitted disease
CPT/HCPCS: 87070; 87205; 87491; 87591; 87624; 88175; G0145

== ENCOUNTER → 2020-12-20 | Outpatient (CLI) | payer MEDICAID, SELFPAY ==
[2020-12-20 14:43] VITALS: BMI 43.3
[2020-12-20 18:28] LABS: Chlamydia Trachomatis by PCR Negative (Negative); Neisserai gonorrhoeae by PCR Negative (Negative); Probe Check PASS; Sample Adequacy Control PASS; Specimen Processing Control PASS
== END | disposition home or self-care (01) ==
LOC: LABSPEC 16:21
PROVIDERS: PCP Family Medicine; Visit Provider Nurse Practitioner Women's Health
DX: Z11.3 Encounter for screening for infections with a predominantly sexual mode of transmission (principal)
CPT/HCPCS: 87491; 87591

== ENCOUNTER → 2021-03-21 16:10 | Outpatient (CLI) | payer MEDICAID, SELFPAY ==
[2021-03-21 17:02] LABS: hCG Titer Quant., Serum < 1 mIU/mL (1-3)
== END ==
PROVIDERS: Referring Provider Nurse Practitioner Women's Health; Visit Provider Nurse Practitioner Women's Health
DX: N91.2 Amenorrhea, unspecified (principal)
CPT/HCPCS: 36415; 84702

== ENCOUNTER → 2023-04-25 | Outpatient (CLI) | payer MEDICAID, SELFPAY ==
[2023-04-25 15:00] LABS: Absolute Neutrophil Count 7.4 X10^3/uL (2.0-7.7); Basophil# 0.05 X10^3/uL; Basophil% 0.4 % (0-1); Eosinophil# 0.36 X10^3/uL; Eosinophils% 3.1 % (0-5); Hematocrit 43.6 % (37-47); Hemoglobin 15.3 g/dL (12.0-15.0); Mean Corp Hgb Conc 35.1 g/dL (32-36); Mean Corpuscular Hgb 33.8 pg (27.0-32.0); Mean Corpuscular Volume 96.2 fL (81-99); Mean Platelet Vol. 11.3 fl (6.2-12.0); Monocyte# 0.63 X10^3/uL; Monocyte% 5.5 % (0-10); NRBC Flagged by Analyzer 0 % (0-5); Neutrophil # 7.44 X10^3/uL (2.7-7.7); Neutrophil % 64.6 % (47-70); Platelet Count 266 K/mm3 (150-450); RBC Distribution Width CV 13.5 % (11.6-14.6); RBC Distribution Width SD 48.5 fl (35.1-43.9); Red Blood Count 4.53 M/mm3 (4.2-5.4); White Blood Count 11.5 K/mm3 (4.4-11.0)
[2023-04-25 15:42] LABS: Thyroid Stim Hormone (TSH) 1.23 uIU/mL (0.358-3.74)
[2023-05-01 11:08] LABS: HPV APTIMA, High Risk Negative (Negative)
== END | disposition home or self-care (01) ==
PROVIDERS: Referring Provider Advanced Practice Midwife; Visit Provider Advanced Practice Midwife
DX: N93.9 Abnormal uterine and vaginal bleeding, unspecified (principal); Z12.4 Encounter for screening for malignant neoplasm of cervix
CPT/HCPCS: 36415; 84443; 85025; 87624; 88175; G0145

== ENCOUNTER 2023-11-13 21:38 | Observation (INO) | payer MEDICAID, SELFPAY ==
[2023-11-13 21:39] VITALS: BP 138/87; PULSE 90; RESP 18; TEMP 37.3; O2SAT 97; BMI 47.1
--- NOTE | 2023-11-13 21:56 | US_ITS ---
We are attempting to reach an attending provider to discuss findings. An addendum with communication details will be sent when the communication is complete. STUDY: ABDOMINAL ULTRASOUND - RIGHT UPPER QUADRANT REASON FOR VISIT: Female, 33 years old PAIN TECHNIQUE: Ultrasound evaluation of the right upper quadrant was performed with real-time and static covarrubias-scale imaging. TECHNICAL QUALITY: Adequate. COMPARISON: None. FINDINGS: Liver: The liver measures 22.7 cm. There is increased echogenicity consistent with fatty infiltration. The bile ducts are within normal limits. There is hepatic color flow. The direction of portal flow is hepatopetal. There is no demonstrated mass lesion. Gallbladder: Normal distended gallbladder. The gallbladder wall measures 2 mm. There is a positive sonographic Doyle''s sign. There is no pericholecystic fluid. There are multiple echogenic structures within the gallbladder, consistent with multiple gallstones. Common Bile Duct (C.B.D.): The common bile duct measures 4 mm. Pancreas: Normal size of the head, body and tail of the pancreas. There is normal echogenicity of the pancreas. There is no demonstrated pancreatic mass or cyst. Right Kidney: Normal size of the right kidney. The right kidney measures 14.3 cm. Normal renal cortex. The right cortex measures 1.8 cm. There is no demonstrated renal mass or cyst. There is no right hydronephrosis. US/Gallbladder IMPRESSION: Possible acute or chronic cholecystitis with cholelithiasis and a positive sonographic Doyle''s sign. Clinical correlation is recommended. Fatty infiltration liver. Electronically Signed: Azael White MD at 23:25 EDT ,
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
[2023-11-13 22:16] LABS: Mucous, Urine 0 SEEN /hpf (<or=2+); Red Blood Cells-Urine 0 SEEN /hpf (0-5)
[2023-11-13 22:17] LABS: Absolute Lymphocyte Count 3.73 X10^3/uL (0.83-4.51); Absolute Neutrophil Count 7.6 X10^3/uL (2.0-7.7); Basophil# 0.06 X10^3/uL; Basophil% 0.5 % (0-1); Eosinophil# 0.38 X10^3/uL; Hematocrit 41.6 % (37-47); Hemoglobin 14.1 g/dL (12.0-15.0); Lymphocyte # 3.73 X10^3/ul (0.83-4.51); Lymphocyte % 29.7 % (19-41); Mean Corp Hgb Conc 33.9 g/dL (32-36); Mean Corpuscular Hgb 31.5 pg (27.0-32.0); Mean Corpuscular Volume 93.1 fL (81-99); Mean Platelet Vol. 11.1 fl (6.2-12.0); Monocyte# 0.75 X10^3/uL; NRBC Flagged by Analyzer 0 % (0-5); Neutrophil % 60.5 % (47-70); Platelet Count 307 K/mm3 (150-450); RBC Distribution Width CV 13.2 % (11.6-14.6); RBC Distribution Width SD 45.3 fl (35.1-43.9); Red Blood Count 4.47 M/mm3 (4.2-5.4); White Blood Count 12.6 K/mm3 (4.4-11.0)
[2023-11-13 22:19] LABS: Color, Urine Yellow (Yellow); Glucose, Dipstick Normal (Normal); Ketone-Dipstick 5 mg/dl (Negative); Leukocyte Esterase-Dipstick 100 /ul (Negative); Nitrite-Dipstick Negative (Negative); Occult Blood-Urine 10 /ul (Negative); Protein-Dipstick 15 mg/dl (Negative); Specific Gravity, Urine 1.025 (1.002-1.030); Urine Bilirubin Dipstick Negative (Negative); Urine Clarity Sl. Cloudy (Clear); Urine Urobilinogen Normal (Normal)
[2023-11-13 22:28] LABS: Internal QC Validated? YES +Cl - CLEAR BKGD; Pregnancy, Serum, hCG Quali. NEGATIVE Negative
[2023-11-13 22:29] LABS: Bacteria 3+ /hpf (None Seen)
[2023-11-13 22:30] LABS: Squamous Epithelial Cells - UA 5-10 SEEN /hpf (5-10); White Blood Cells 0-5 SEEN /hpf (0-5)
[2023-11-13 22:32] LABS: Lactic Acid 0.7 mmol/L (0.4-1.9)
[2023-11-13 22:34] LABS: ALB/GLOB Ratio 0.9 RATIO (0.9-2.4); AST(SGOT) 8 U/L (15-37); Alanine Aminotransfer ALT/SGPT 16 U/L (13-56); Albumin, Serum 3.3 g/dL (3.2-5.0); Alkaline Phosphatase 62 U/L (45-117); Anion Gap 5 (5-15); BUN 20 mg/dL (7-18); BUN/Creat Ratio 31.4 RATIO (10-20); Calcium,Total 8.7 mg/dL (8.5-10.1); Chloride 106 mmol/L (98-107); Creatinine, Serum 0.64 mg/dL (0.55-1.02); EST Glomerular Filtration Rate 114 mL/min (>60); Est Glom Filt Rate - Afr Amer 137 mL/min (>60); Estimated Creatinine Clearance 139.02 ml/min; Globulin 3.8 g/dL (2.2-4.2); Glucose 127 mg/dL (74-106); Potassium 3.6 mmol/L (3.5-5.1); Protein, Total 7.1 g/dL (6.4-8.2); Sodium Level 137 mmol/L (136-145)
--- NOTE | 2023-11-13 22:39 | CT_ITS ---
STUDY: CT ABDOMEN AND PELVIS WITH CONTRAST REASON FOR EXAM: Female, 33 years old. abdominal pain RADIATION DOSAGE (If Supplied By Facility): CTDIvol = ( 16.99 ) mGy, DLP = ( 1306.86 ) mGycm TECHNIQUE: Transaxial images were obtained from the dome of the diaphragm to the symphysis pubis without oral contrast. IV 100mL Isovue-370 was administered. Sagittal and coronal images were reconstructed. Individualized dose optimization techniques were used for this CT. COMPARISON: None. FINDINGS: The visualized lung bases are unremarkable. The visualized portions of the heart are within normal limits. Normal liver. There are multiple gallstones. Normal spleen. Normal pancreas. Normal bilateral adrenal glands. Normal right kidney. Normal left kidney. Normal visualized stomach. Normal small intestine. Normal colon. The appendix is visualized and appears normal. Normal abdominal aorta. Normal inferior vena cava. Normal retroperitoneum. Normal urinary bladder. Normal abdominal wall. Normal osseous structures. CT/Abdomen/Pelvis W IV Cont ONLY IMPRESSION: Cholelithiasis. Electronically Signed: Azael White MD at 23:31 EDT ,
[2023-11-13] MEDS: 0.9% Normal Saline (1000mL) 1,000 ML 125 ML IV (22:45)
[2023-11-13] MEDS: HYDROmorphone 1 MG/ML Syringe IV (22:57)
[2023-11-13 23:39] VITALS: BP 119/83; PULSE 74; RESP 18; O2SAT 94
[2023-11-14] VITALS (15 sets, daily range): BP systolic 104–138; BP diastolic 65–98; PULSE 73–86; RESP 14–18; TEMP -7.7–37.1; O2SAT 92–98; BMI 38.8
--- NOTE | 2023-11-14 | GALL_PTH ---
PATIENT: LAKISHA VIVAR LOC: [facility] U#:[id number] AGE/SX: 33/F ROOM: WI318 RE11/14/[address]: Dr. Richard Gutiérrez MD : 1990 BED: 1 DIS: 11/15/2023 SPEC #: [id number] RECD: 11/15/23 08:14 STATUS: JOSE COOPER #: [id number] MICHELLE: 11/14/23 00:[address]: Richard Gutiérrez DEPT: SURGICAL PATHOLOGY RECD BY: Vladimir Negrete ENTERED: 11/15/23 09:26 SP TYPE: ARACELIS DAY DR: Johanna Carr, CAREER RESOURCE SPECIALIST-C Tissues: Gallbladder, NOS Procedures: Surgery Specimen Level III HEADER OPERATION: Laparoscopic, Cholecystectomy PRE-OP DIAGNOSIS: Cholecystitis TISSUE SUBMITTED: Gallbladder MICROSCOPIC DIAGNOSIS Gallbladder, cholecystectomy: Chronic cholecystitis and cholelithiasis. AM/ 11/18/2023 MICROSCOPIC DESCRIPTION Slides are reviewed. GROSS DESCRIPTION Received is one container labeled with the patient's name and designated gallbladder. The specimen consists of a gallbladder measuring 9.0 cm in length and up to 2.5 cm in diameter. The external surface is pink-mooney, smooth and glistening for the most part. Focally it is granular, hemorrhagic and contains cautery artifact. The gallbladder contains small amount of green-yellow mucoid bile and five ovoid to round to ovoid brownish-black stones measuring in aggregate 2.5 x 1.5x 0.7 cm and 0.6 to 0.8 cm in greatest dimension. The mucosa is bile-stained and without any mass lesions. The gallbladder wall measures up to 0.2 cm in thickness. Black Top Paver Operator sections from the gallbladder and the cystic duct are submitted in one cassette. / SJ: 11/15/2023 TC:3 CPT: 56038
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
[2023-11-14] MEDS: Piperacil/Tazobactam 3.375 GM in 0.9% Normal Saline (50mL MB+) 50 ML IV ×4 (02:22→21:50)
[2023-11-14] MEDS: 0.9% Normal Saline (1000mL) 1,000 ML 125 ML IV ×3 (02:22→23:20)
[2023-11-14] MEDS: Ondansetron 4 MG/2 ML Vial IV (02:36)
[2023-11-14] MEDS: HYDROmorphone 0.5 MG/0.5 ML SYRINGE IV ×3 (02:54→23:20)
[2023-11-14] MEDS: 0.9% Saline Lock 10 ML Syringe IV (02:55)
--- NOTE | 2023-11-14 06:00 | EKG12_ITS ---
Test Reason : AM EKG Blood Pressure : / mmHG Vent. Rate : 077 BPM Atrial Rate : 077 BPM P-R Int : 182 ms QRS Dur : 084 ms QT Int : 386 ms P-R-T Axes : 014 053 032 degrees QTc Int : 436 ms Normal sinus rhythm Normal ECG When compared with ECG of 08-JUL-2018 14:37, No significant change was found Confirmed by BELL DEE ([id number]), publishing editor DENISE ROD ([id number]) on 11/18/2023 9:31:15 AM Referred By: SAMMIE Confirmed By:BELL DEE
--- NOTE | 2023-11-14 11:45 | CASEMGMT ---
Social Work Pt completed HCPOA document w/SW, named her mother Frederick Monson as Healthcare POA. SW gave pt originals and copies, and placed a copy on the chart. Pt deferred to complete LW at this time, blank form provided to pt should she want to complete in the future. JERMAN Jain
[2023-11-14 15:06] LABS: Bedside Glucose 101 mg/dL (74-106)
[2023-11-14] MEDS: Lactated Ringers 1,000 ML 15 ML IV ×2 (15:29→16:34)
--- NOTE | 2023-11-14 17:07 | OP.PCM_ITS ---
Report of Operation Date of Procedure: 11/14/23 Pre-Operative Diagnosis: Acute cholecystitis with cholelithiasis Post-Operative Diagnosis: Same Surgery/Procedure Performed:: Laparoscopic cholecystectomy with intraoperative cholangiography (aborted) Description of Surgical Findings:: ? Acutely inflamed gallbladder located invaginated within a clefted liver that exhibited gross evidence of steatosis ? Diminutive cystic duct that would not accommodate cholangiocatheter intubation despite multiple attempts to milked the debris from the cystic duct Surgeon: Richard Gutiérrez special events coordinator: Vanessa Bruner special events coordinator: Venancio Meeks Type of Anesthesia: General/Supplemental Anesthesiologist: Junior Alegre Specimen's removed: Gallbladder Estimated Blood Loss (mL): 25 Description of Procedure: After proper identification in the preoperative holding area the patient was brought to the operating room where she was positioned supine on the operating room table. Preoperatively SCDs were connected and antibiotics were administere d (with an interval dose of 2 g Ancef). General anesthesia was then induced. Patient's abdomen was prepped and draped in usual sterile fashion. A formal timeout was conducted to confirm both patient and the procedure. Procedure was begun with a supraumbilical incision which was extended deeply down to the level of the fascia. The fascia was elevated and incised, as well as the peritoneum. A finger sweep was performed to ensure there were no underlying adhesions and a 12 mm balloon trocar was inserted. Pneumoperitoneum was established at 15 mmHg. Three additional trocars (all 5 mm) were placed in the epigastrium and in the right upper quadrant. Inspection of the peritoneum revealed no inadvertent injury to the viscera below. The gallbladder was visualized with evidence of mild acute inflammation. The gallbladder fundus was then grasped and elevated cephalad. This proved somewhat challenging given the elongated gallbladder body and foreshortened infundibular region. Using careful dissection the peritoneum was opened and the structures of the hepatocystic triangle were delineated. Once the critical view of safety was obtained, the cystic duct was singly clipped and partially divided with a ductotomy. The proximal duct was milked of any debris until there was backflow of bile. A 14-gauge angiocatheter was introduced through the abdominal wall in the epigastrium and a metal tipped cholangiocatheter was fed into the peritoneal cavity via this angiocatheter. Despite approximately 6 attempts at intubating the proximal cystic duct the catheter simply would not pass into the duct so the procedure was aborted. The catheter was withdrawn and the duct was occluded with 2 titanium clips and transected. The cystic artery was further skeletonized and then clipped and divided as well. The gallbladder was then removed from the gallbladder fossa with the use of electrocautery. Unfortunately during this removal process and placing traction on the gallbladder a inadvertent rent was made in the body of the gallbladder resulting in local spillage of bile which was promptly suctioned free of the peritoneal cavity with the suction merchandise flow team leader device. Several branches of the cystic artery were singly ligated with additional clips and divided with electrocautery. Selective electrocautery was used to obtain hemostasis in the gallbladder fossa. The gallbladder was placed in an Endo Catch bag and removed from the peritoneum. Morison's pouch was irrigated and the effluent was suctioned free of the peritoneum. Hemostasis was again confirmed. Then patient's supraumbilical port site was closed in a [id number] fashion under laparoscopic visualization with a Marcos Ramon suture passer #1 PDS suture. Pneumoperitoneum was evacuated and this fascial stitch was tied. A total of 30 mL of anesthetic was injected at the port sites for postoperative pain control. The skin of each port site was then closed in subcuticular fashion using 4-0 Monocryl. Steri-Strips and bandages were applied as dressings. Patient tolerated the procedure well without any apparent complications. On emergence from their anesthetic the patient was taken to PACU for ongoing recovery. Grafts/Implants Used: None Complications None Admit VTE Documentation VTE Mechan Device Prophylaxis: SCD's Procedures Digestive 40xxx-49xxx: 61061 Laparoscopic cholecystectomy
[2023-11-14] MEDS: Bupivacaine Mpf 0.5% 30 ML VIAL (17:10)
--- NOTE | 2023-11-14 18:43 | SUR.PHASEI ---
PATIENT AWAITING TRANSPORT TO [facility]
[2023-11-14] MEDS: oxyCODONE 5 MG Tablet PO (21:47)
[2023-11-14] MEDS: Acetaminophen 500 MG Tablet PO (21:47)
[2023-11-15 03:23] VITALS: BP 137/82; PULSE 83; RESP 16; TEMP 37.1; O2SAT 93
--- NOTE | 2023-11-15 06:38 | DCINST_ITS ---
Discharge Instructions Diet Discharge Diet: No restrictions Activity Discharge Activity: May Not Drive (No driving while using narcotic pain medication) and May Shower (Postoperative day 1) May shower in (days): 1 Ice area for (Minutes): 20 Lifting Restrictions: No lifting greater than 15 pounds for 2 weeks after surgery Dressing / Incision Call your doctor if your incision/area has: Continuous Slow Oozing, Increased Pain/ Swelling, Increased Redness, Foul Smelling Discharge and Swelling at the incision site Call your doctor if you observe: Fever of 101 or Higher Remove Dressing in: 1 day (Please leave Steri-Strips intact until they fall off spontaneously or are taken off at your follow-up visit) Cleanse incision/area with: Soap & Water Follow Up Care Please Follow Up With: Richard Gutiérrez MD When: 7-10days postop Test Results: Test results from this visit will be discussed in further detail at your follow- up appointment, if applicable. Discharge Plan Admission Admit Date/Time: 11/14/23 01:02 Primary Reason for Your Visit: Gallbladder surgery Attending Provider: Richard Gutiérrez Primary Care Provider: Johanna Carr NP Discharge Orders/Prescriptions Prescriptions: New oxycodone 5 mg Tablet 5 mg PO Q6H PRN PRN (Reason: Pain Score 6-10) 3 Days Qty: 10 0RF Continued Trulicity 0.75 mg/0.5 mL pen injector 0.75 mg subcut QWEEK Referrals / Follow Up: Johanna Carr NP, [employer] [Primary Care Provider] - Disposition Disposition (needs filled in before D/C Order can be placed): Home, Self Care
[2023-11-15] MEDS: 0.9% Normal Saline (1000mL) 1,000 ML 125 ML IV (06:42)
[2023-11-15] MEDS: Piperacil/Tazobactam 3.375 GM in 0.9% Normal Saline (50mL MB+) 50 ML IV (06:42)
--- NOTE | 2023-11-15 06:43 | DS.PCM_ITS ---
Providers Date of Admission: 11/14/23 Primary Care Physician: ARNOLD ParadaC Reason For Visit: CHOLECYSTITIS Diagnosis Discharge Diagnosis (1) Cholecystitis: Status: Acute Code(s): K81.9 - Cholecystitis, unspecified Plan: Patient is a 33-year-old female who presents with signs and symptoms of acute cholecystitis with cholelithiasis. She describes onset of her symptoms today with no prior experience of this pain. Even post medication she remains tender to palpation with positive Doyle sign on exam. I suspect this is early acute cholecystitis and this is the reason for her otherwise normal ultrasound without other secondary signs of cholecystitis. Thus I have recommended we plan to proceed to the operating room for laparoscopic cholecystectomy. Details of the procedure were discussed as well as post procedure expectations. Patient was receptive of this recommendation was to proceed as described. Patient will be admitted for observational stay with IV antibiotics to be initiated immediately. All questions were answered from patient and her mother is present at bedside with her today. Medications at Discharge Home Medications dulaglutide 0.75 mg/0.5 mL subcutaneous pen injector (Trulicity) 0.75 mg subcut QWEEK 11/14/23 oxycodone 5 mg tablet 5 mg PO Q6H PRN PRN Pain Score 6-10 3 days #10 tabs 11/15/23 Hospital Course Operations cholecystecomy (11/14/2023) Summary of Care Provided Hospital Course: Patient is a 33-year-old female who presented to [facility] ER on 11/13/2023. Her workup was consistent with a diagnosis of cholecystitis and she was recommended laparoscopic cholecystectomy with intraoperative cholangiogram. However, given the late hour of her consultation the procedure was not undertaken until the following day, 11/14/2023. Apart from having to abort her attempted a cholangiogram to the small size of her cystic duct, the procedure was completed in uncomplicated fashion. She was returned to the hospital sales following the procedure to allow for ongoing recovery. Morning of postoperative day 1 patient was without pain complaint and had tolerated her diet advancement without difficulty. Thus discharge instructions and wound care were reviewed. Upon patient expressing her comfort with these instructions and confirming tolerance of further diet advancement discharge to home was granted. Physical Exam Const alert, oriented x3 and no apparent distress GI GI Narrative: Nondistended, soft, operative dressings remain clean dry and intact. Patient with minimal tenderness to palpation Weight / BMI Weight Weight: 233 lb 7.512 oz Body Mass Index (BMI) 38.8 ABG / Lab / Microbiology Data 11/15/23 07:23 11/15/23 07:23 Laboratory: Laboratory Results - last 24 hr 11/13/23 21:50: Hemoglobin A1c 7.0 H 11/14/23 14:47: POC Glucose 101 D/C Instructions Discharge Diet: No restrictions May shower in (days): 1 Ice area for (Minutes): 20 Call your doctor if your incision/area has: Continuous Slow Oozing, Increased Pain/ Swelling, Increased Redness, Foul Smelling Discharge and Swelling at the incision site Call your doctor if you observe: Fever of 101 or Higher Cleanse incision/area with: Soap & Water Please Follow Up With: Richard Gutiérrez MD When: 7-10days postop Meaningful Use Info Meaningful Use Meaningful Use Diagnoses (Choose all that apply): None applicable Ischemic Stroke Statin Dosing Therapy Reference: STATIN DOSE THERAPY REFERENCE: * Patients > 75 years receive moderate or high dose statin therapy. * Patients 75 years or YOUNGER should receive HIGH intensity statin dose unless contraindicated. You will be required to document reason for non-treatment if statin daily dose does not meet guidelines. HIGH DOSE STATIN THERAPY DAILY Atorvastatin > than or = to 40 mg Rosuvastatin > than or = to 20 mg Amlodipine + Atorvastatin > than or = to 2.5/40 mg Ezetimibe + Simvastatin 10/80 mg Simvastatin 80mg Discharge Plan Admission Admit Date/Time: 11/14/23 01:02 Primary Reason for Your Visit: Gallbladder surgery Attending Provider: Richard Gutiérrez Primary Care Provider: Johanna Carr NP Discharge Orders/Prescriptions Prescriptions: New oxycodone 5 mg Tablet 5 mg PO Q6H PRN PRN (Reason: Pain Score 6-10) 3 Days Qty: 10 0RF Continued Trulicity 0.75 mg/0.5 mL pen injector 0.75 mg subcut QWEEK Referrals / Follow Up: Johanna Carr NP, [employer]-[facility] [Primary Care Provider] - Disposition Disposition (needs filled in before D/C Order can be placed): Home, Self Care Charges/Coding Visit Charges Inpatient E&M: 67094 Disch Hosp
[2023-11-15 06:46] VITALS: BP 162/92; PULSE 81; RESP 16; TEMP 36.8; O2SAT 98
[2023-11-15 08:00] VITALS: BP 143/94; PULSE 77; RESP 14; TEMP 36.9; O2SAT 97
[2023-11-15 08:18] LABS: Absolute Lymphocyte Count 1.93 X10^3/uL (0.83-4.51); Absolute Neutrophil Count 8.3 X10^3/uL (2.0-7.7); Basophil# 0.03 X10^3/uL; Basophil% 0.3 % (0-1); Eosinophil# 0.18 X10^3/uL; Eosinophils% 1.6 % (0-5); Hematocrit 36.6 % (37-47); Hemoglobin 12.3 g/dL (12.0-15.0); Lymphocyte # 1.93 X10^3/ul (0.83-4.51); Lymphocyte % 17.6 % (19-41); Mean Corp Hgb Conc 33.6 g/dL (32-36); Mean Corpuscular Hgb 31.7 pg (27.0-32.0); Mean Corpuscular Volume 94.3 fL (81-99); Mean Platelet Vol. 11.1 fl (6.2-12.0); Monocyte# 0.52 X10^3/uL; Monocyte% 4.7 % (0-10); NRBC Flagged by Analyzer 0 % (0-5); Neutrophil # 8.26 X10^3/uL (2.7-7.7); Neutrophil % 75.5 % (47-70); Platelet Count 264 K/mm3 (150-450); RBC Distribution Width CV 13.2 % (11.6-14.6); RBC Distribution Width SD 45.7 fl (35.1-43.9); Red Blood Count 3.88 M/mm3 (4.2-5.4)
[2023-11-15 08:49] LABS: ALB/GLOB Ratio 0.8 RATIO (0.9-2.4); AST(SGOT) 66 U/L (15-37); Alanine Aminotransfer ALT/SGPT 65 U/L (13-56); Albumin, Serum 2.7 g/dL (3.2-5.0); Alkaline Phosphatase 68 U/L (45-117); Anion Gap 5 (5-15); BUN 8 mg/dL (7-18); BUN/Creat Ratio 15.1 RATIO (10-20); Chloride 110 mmol/L (98-107); Creatinine, Serum 0.53 mg/dL (0.55-1.02); EST Glomerular Filtration Rate 140 mL/min (>60); Est Glom Filt Rate - Afr Amer 170 mL/min (>60); Estimated Creatinine Clearance 180.77 ml/min; Globulin 3.3 g/dL (2.2-4.2); Glucose 140 mg/dL (74-106); Potassium 3.5 mmol/L (3.5-5.1); Sodium Level 140 mmol/L (136-145)
--- NOTE | 2023-11-15 09:15 | CASEMGMT ---
RN CM into pt room, pt sitting up in bed in no distress and just received breakfast. Pt reports being I in ADL's and denies concerns at home. Pt reports being dx newly with diabetes in July. She is seeing a body technician at [facility] as an outpt. Pt denies any issues administering trulicity and has shawanda CGM with sufficient supply of sensors. Pt denies any homegoing needs.
[2023-11-15] MEDS: Acetaminophen 500 MG Tablet PO (10:32)
[2023-11-15] MEDS: oxyCODONE 5 MG Tablet PO (10:32)
--- NOTE | 2023-11-15 10:36 | PHA.DC_ITS ---
Pharmacy [facility] has performed discharge medication reconciliation and counseling for this patient. 1. OXYCODONE 5MG PO Q6H PRN PAIN 6-10 The patient's discharge medication list was reviewed for discrepancies and discrepancies were resolved. The patient was counseled on the following discharge medications and changes in medications for homegoing were reviewed. The Reason for Use, instructions for use, and potential side effects were reviewed for all new medications. The patient's questions regarding all of their medications were answered. The patient was able to verbally demonstrate an understanding of their discharge medications. Medications at Discharge Home Medications dulaglutide 0.75 mg/0.5 mL subcutaneous pen injector (Truliceast [facility]) 0.75 mg subcut QWEEK 11/14/23 oxycodone 5 mg tablet 5 mg PO Q6H PRN PRN Pain Score 6-10 3 days #10 tabs 11/15/23
== END 2023-11-15 10:42 | disposition home or self-care (01) ==
LOC: ED 11-14 01:07 → MS3 11-14 01:28
PROVIDERS: Anesthesiology; Admitting Provider Surgery; Emergency Provider Emergency Medicine; PCP Nurse Practitioner Family; Visit Provider Surgery
PROC: (CPT 47610; principal; 2023-11-14 13:55)
DX: K80.12 Calculus of gallbladder with acute and chronic cholecystitis without obstruction (principal); E11.9 Type 2 diabetes mellitus without complications; K76.0 Fatty (change of) liver, not elsewhere classified; F17.210 Nicotine dependence, cigarettes, uncomplicated; Z79.85 Long-term (current) use of injectable non-insulin antidiabetic drugs
CPT/HCPCS: 47562; 00790; 36415; 74177; 76705; 80053; 81001; 82962; 83036; 83605; 84703; 85025; 88304; 93005; 96361; 96365; 96366; 96375; 96376; 99221; 99284; J7030; J7040; J7120; Q9967; A4216; G0378; J2405

== ENCOUNTER 2023-11-28 11:35 | Emergency (ER) | payer MEDICAID, SELFPAY ==
[2023-11-28 11:35] VITALS: BP 146/99; PULSE 86; RESP 16; TEMP 36.6; O2SAT 97; BMI 38.0
--- NOTE | 2023-11-28 12:08 | EDS_ITS ---
<Statement entered by Samantha Tellez MD - 11/28/23 16:47> I have personally performed a face to face assessment of the patient and have reviewed the KARIS Note. Patient presents Dr. Gutiérrez's office secondary to abdominal pain. She had a cholecystectomy performed Dr. Gutiérrez 2 weeks ago. She followed up in the office today with increasing abdominal pain and intermittent fevers for the past 2 days. She was sent to the emergency room for lab work and CT imaging. Patient states the initial pain she had was resolved by the cholecystectomy, but now she has a burning-like sensation in her right upper quadrant. She told me that she thinks that she has been doing too much after her surgery and not resting like she should. Patient sitting upright in bed no acute distress. She is nontoxic-appearing. Head and neck examination unremarkable. Heart is regular rate and rhythm. Lung sounds are clear. Abdomen is soft with mild to moderate right upper quadrant tenderness. No guarding or rebound. Lab work is unremarkable. CT of the right upper quadrant reveals normal postoperative changes with no evidence of acute infection or fluid collection. Dr. Gutiérrez was contacted and reviewed her workup. He would like her started on Protonix and Carafate and will follow-up in the office in 2 weeks. Turn instructions provided. HPI HPI - GI History of Present Illness Chief Complaint: Abd Pain Narrative Narrative: Patient presenting today due to right upper quadrant burning abdominal pain that she has had persistently over the past 2 weeks after having her gallbladder removed [address] Gutiérrez. She denies any surgical complications. She has had intermittent nausea and a decreased appetite. On Saturday she began to have intermittent fevers, the highest being 101.4 ?F. She saw him in the office today and he wanted her to obtain outpatient imaging and laboratory work, however her insurance would not approve this and he encouraged her to come into the ED for evaluation. She denies any urinary symptoms, vomiting, or diarrhea. She last had a bowel movement this morning which was harder than usual. [facility] Medical History Abscess of right breast Diabetes Fever Gestational diabetes Right sided abdominal pain Home Medications dulaglutide 0.75 mg/0.5 mL subcutaneous pen injector (Trulicity) 0.75 mg subcut QWEEK 11/14/23 [History Last Taken 11/10/23] pantoprazole 40 mg tablet,delayed release (Protonix) 40 mg PO DAILY #14 tabs 09/21 [Rx Last Taken Unknown] sucralfate 1 gram tablet (Carafate) 1 g PO BID #10 tabs 11/28/23 [Rx Last Taken Unknown] Allergy/AdvReac Type Severity Reaction Status Date / Time glipizide Allergy Mild itchy Verified 11/28/23 11:37 venom-honey bee Allergy Anaphylaxis Verified 11/28/23 11:37 [bee venom (honey bee)]
--- NOTE | 2023-11-28 12:08 | ED.VIS.GI ---
HPI HPI - GI History of Present Illness Chief Complaint: Abd Pain Narrative Narrative: Patient presenting today due to right upper quadrant burning abdominal pain that she has had persistently over the past 2 weeks after having her gallbladder removed [address] Gutiérrez. She denies any surgical complications. She has had intermittent nausea and a decreased appetite. On Saturday she began to have intermittent fevers, the highest being 101.4 ?F. She saw him in the office today and he wanted her to obtain outpatient imaging and laboratory work, however her insurance would not approve this and he encouraged her to come into the ED for evaluation. She denies any urinary symptoms, vomiting, or diarrhea. She last had a bowel movement this morning which was harder than usual. [facility] Medical History Abscess of right breast Diabetes Fever Gestational diabetes Right sided abdominal pain Home Medications dulaglutide 0.75 mg/0.5 mL subcutaneous pen injector (Trulicity) 0.75 mg subcut QWEEK 11/14/23 [History Last Taken 11/10/23] pantoprazole 40 mg tablet,delayed release (Protonix) 40 mg PO DAILY #14 tabs 11/28/23 [Rx Last Taken Unknown] sucralfate 1 gram tablet (Carafate) 1 g PO BID #10 tabs 11/28/23 [Rx Last Taken Unknown] Allergy/AdvReac Type Severity Reaction Status Date / Time glipizide Allergy Mild itchy Verified 11/28/23 11:37 venom-honey bee Allergy Anaphylaxis Verified 11/28/23 11:37 [bee venom (honey bee)] Family History Father Diabetes Hypertension Lupus Cancer bladder Grandfather Heart disease Surgical History delivery delivered H/O tubal ligation History of tonsillectomy pins inserted in humerus Social History Smoking Status: Current every day smoker tobacco type: cigarettes alcohol intake: current details: social substance use type: does not use caffeine: Yes frequency: 3-4 times per week seatbelt use: always do you feel safe at home: Yes additional social history: Single Patient works at [employer] ED Constitutional Constitutional ED: Reports fever(s) Cardiovascular Cardiovascular: Denies chest pain or palpitations Respiratory/Chest Respiratory/Chest: Denies cough or dyspnea Gastrointestinal Gastrointestinal: Reports abdominal pain and nausea; Denies constipation, diarrhea or vomiting Genitourinary Genitourinary ED: Denies dysuria, hematuria or urinary urgency Musculoskeletal Musculoskeletal: Denies arthralgias, back pain, myalgias or neck pain Integumentary Denies abscess, Abrasions or rash Neurologic Neurologic: Denies confusion, dizziness or paresthesias Psychiatric Psychiatric: Denies anxiety, depression, suicidal ideation or suicidal thoughts Allergic/Immunologic Allergic/Immunologic ED: Denies lip swelling, mouth swelling or urticaria EXAM Physical Exam Const Vital Signs: 11/28/23 11:35 Temperature 97.8 F Temperature Source Temporal Pulse Rate 86 Respiratory Rate 16 Blood Pressure 146/99 H Blood Pressure Mean 114 Pulse Ox 97 Oxygen Delivery Method Room Air Positive well nourished, well developed and no apparent distress General Appearance ED: well developed HEENT Reports normocephalic and head/scalp atraumatic Mouth ED: Yes moist mucous membranes normal Eyes PERRL and EOMs intact bilaterally Neck full ROM and supple Chest Wall inspection of chest normal Resp normal respiratory effort and clear to auscultation bilaterally Cardio regular rate and regular rhythm GI soft to palpation, non-distended and no masses GI Narrative: Right upper quadrant tenderness to palpation, no rigidity or guarding. Healed surgical incisions, no dehiscence, surrounding erythema, or purulent discharge. Back/Spine normal ROM and normal to inspection Extremity normal to inspection and full ROM Neuro oriented x3, CN's II-XII intact bilaterally, moves all extremities, no focal motor deficits and no sensory deficits noted Sensorium / Orientation: awake and alert Psych mental status grossly normal and thought process normal Skin no rashes or lesions noted and no wounds MDM MDM MDM Narrative Medical decision making narrative: Patient resenting due to right upper quadrant burning abdominal pain she has had over the past 2 weeks after having a cholecystectomy 2 weeks ago. She is well-appearing and in no acute distress. She was sent in by Dr. Gutiérrez. I did speak with him, he would like us to obtain laboratory work and a CT scan of the abdomen and pelvis with IV contrast. She was given Toradol for pain. CBC, CMP, lipase overall are unremarkable. CT scan shows fatty liver but otherwise is unremarkable. I did discuss these findings with Dr. Gutiérrez, he recommends treating patient with a GI cocktail and discharging her home on a PPI and Carafate. He wants her to follow-up in the office in 2 weeks. Patient did admit that she has been overdoing it over the past 2 weeks and went back to work early and has been engaging in a lot of activities with her kids. I did encourage that she follow her postop recommendations as set by Dr. Gutiérrez. Return instructions discussed and she will be discharged home in stable condition. Lab Data Attestation: I reviewed the patient's lab results. Labs: Laboratory Results - last 24 hr 11/28/23 12:21 WBC 9.8 RBC 4.22 Hgb 13.3 Hct 39.6 MCV 93.8 MCH 31.5 MCHC 33.6 RDW Std Deviation 45.4 H RDW Coeff of Kitty 13.2 Plt Count 309 MPV 11.1 Immature Gran % (Auto) 0.300 Neut % (Auto) 63.6 Lymph % (Auto) 27.2 [place] % (Auto) 5.6 Eos % (Auto) 3.0 Baso % (Auto) 0.3 Absolute Neuts (auto) 6.2 Absolute Lymphs (auto) 2.66 Nucleated RBC % 0 Sodium 137 Potassium 4.1 Chloride 107 Carbon Dioxide 26.0 Anion Gap 4 L BUN 16 Creatinine 0.53 L Estim Creat Clear Calc 178.50 Est GFR (MDRD) Af Amer 168 Est GFR (MDRD) Non-Af 139 BUN/Creatinine Ratio 30.0 H Glucose 112 H Calcium 8.9 Total Bilirubin 0.20 AST 8 L ALT 16 Alkaline Phosphatase 57 Total Protein 6.8 Albumin 3.3 Globulin 3.5 Albumin/Globulin Ratio 0.9 Lipase 30 Radiography Diagnostic Testing: Clinical Impression(s) from Imaging Studies Abdomen/Pelvis CT 11/28/23 12:10 IMPRESSION: Status post cholecystectomy. Mild hepatomegaly and fatty infiltration of the liver. Electronically Signed: Hector Suh MD at 13:31 EDT , Discharge Plan Triage Chief Complaint: Abd Pain ED Midlevel Provider: Bing Melvin ED Provider: Samantha Tellez Dx/Rx/DC Orders Clinical Impression: Status post laparoscopic cholecystectomy, Abdominal pain Instructions: ED Gastritis (Adult) Prescriptions: New pantoprazole [Protonix] 40 mg tablet,delayed release (DR/EC) 40 mg PO DAILY Qty: 14 0RF sucralfate [Carafate] 1 gram tablet 1 g PO BID Qty: 10 0RF No Action Trulicity 0.75 mg/0.5 mL pen injector 0.75 mg subcut QWEEK Primary Care Provider: Johanna Carr NP Referrals: Johanna Carr NP, [employer] WOMAN-C [Primary Care Provider] - Activity Restrictions/Additional Instructions: Please follow-up with Dr. Gutiérrez in 2 weeks. Return for any worsening of your symptoms. Disposition Disposition: Home, Self Care
--- NOTE | 2023-11-28 12:10 | CT_ITS ---
STUDY: CT ABDOMEN AND PELVIS WITH CONTRAST REASON FOR EXAM: Female, 33 years old. RUQ pain. Recent cholecystectomy. RADIATION DOSAGE (If Supplied By Facility): CTDIvol = ( 15.38 ) mGy, DLP = ( 1283.53 ) mGycm TECHNIQUE: Transaxial images were obtained from the dome of the diaphragm to the symphysis pubis without oral contrast. IV 100mL Isovue-300 was administered. Sagittal and coronal images were reconstructed. Individualized dose optimization techniques were used for this CT. COMPARISON: Comparison is made with prior study dated November 13, 2023. FINDINGS: Minimal degree of dependent atelectasis at the right lung base. The visualized portions of the heart are within normal limits. There is decreased attenuation of the liver consistent with steatosis. Mild hepatomegaly. There are surgical clips in the gallbladder fossa consistent with a prior cholecystectomy. Normal spleen. Normal pancreas. Normal bilateral adrenal glands. There is a 1.6 cm cyst in the medial midportion of the right kidney. Normal left kidney. Normal visualized stomach. Normal small intestine. There are multiple colonic diverticula consistent with diverticulosis. The appendix is visualized and appears normal. Normal abdominal aorta. Normal inferior vena cava. Normal retroperitoneum. Normal urinary bladder. Minimal increased markings in the subcutaneous fat deep to the umbilicus most likely due to the recent laparoscopic cholecystectomy. Normal osseous structures. CT/Abdomen/Pelvis W IV Cont ONLY IMPRESSION: Status post cholecystectomy. Mild hepatomegaly and fatty infiltration of the liver. Electronically Signed: Hector Suh MD at 13:31 EDT ,
[2023-11-28] MEDS: Ketorolac 15 MG/ML Vial IV (12:18)
[2023-11-28 12:36] LABS: Absolute Lymphocyte Count 2.66 X10^3/uL (0.83-4.51); Absolute Neutrophil Count 6.2 X10^3/uL (2.0-7.7); Basophil# 0.03 X10^3/uL; Basophil% 0.3 % (0-1); Eosinophil# 0.29 X10^3/uL; Hematocrit 39.6 % (37-47); Hemoglobin 13.3 g/dL (12.0-15.0); Lymphocyte # 2.66 X10^3/ul (0.83-4.51); Lymphocyte % 27.2 % (19-41); Mean Corp Hgb Conc 33.6 g/dL (32-36); Mean Corpuscular Hgb 31.5 pg (27.0-32.0); Mean Corpuscular Volume 93.8 fL (81-99); Mean Platelet Vol. 11.1 fl (6.2-12.0); Monocyte# 0.55 X10^3/uL; Monocyte% 5.6 % (0-10); NRBC Flagged by Analyzer 0 % (0-5); Neutrophil # 6.23 X10^3/uL (2.7-7.7); Neutrophil % 63.6 % (47-70); Platelet Count 309 K/mm3 (150-450); RBC Distribution Width CV 13.2 % (11.6-14.6); RBC Distribution Width SD 45.4 fl (35.1-43.9); Red Blood Count 4.22 M/mm3 (4.2-5.4); White Blood Count 9.8 K/mm3 (4.4-11.0)
[2023-11-28 12:54] LABS: ALB/GLOB Ratio 0.9 RATIO (0.9-2.4); AST(SGOT) 8 U/L (15-37); Alanine Aminotransfer ALT/SGPT 16 U/L (13-56); Albumin, Serum 3.3 g/dL (3.2-5.0); Alkaline Phosphatase 57 U/L (45-117); Anion Gap 4 (5-15); BUN 16 mg/dL (7-18); Calcium,Total 8.9 mg/dL (8.5-10.1); Chloride 107 mmol/L (98-107); Creatinine, Serum 0.53 mg/dL (0.55-1.02); EST Glomerular Filtration Rate 139 mL/min (>60); Est Glom Filt Rate - Afr Amer 168 mL/min (>60); Globulin 3.5 g/dL (2.2-4.2); Glucose 112 mg/dL (74-106); Lipase 30 U/L (13-75); Potassium 4.1 mmol/L (3.5-5.1); Protein, Total 6.8 g/dL (6.4-8.2); Sodium Level 137 mmol/L (136-145)
[2023-11-28 13:35] VITALS: BP 136/84; PULSE 84; RESP 18; O2SAT 98
[2023-11-28] MEDS: Mag Hydrox/Al Hydrox/Simeth 30 ML UDC PO (14:02)
[2023-11-28 14:06] VITALS: BP 136/84; PULSE 84; RESP 18; TEMP 36.9; O2SAT 98
== END 2023-11-28 14:06 | disposition home or self-care (01) ==
PROVIDERS: Physician Assistant; Emergency Provider Emergency Medicine; PCP Nurse Practitioner Family; Visit Provider Emergency Medicine
DX: R10.11 Right upper quadrant pain (principal); E11.9 Type 2 diabetes mellitus without complications; Z90.49 Acquired absence of other specified parts of digestive tract; F17.210 Nicotine dependence, cigarettes, uncomplicated
CPT/HCPCS: 74177; 80053; 83690; 85025; 96374; 99284; Q9967; A4216

== ENCOUNTER → 2025-01-11 | Outpatient (CLI) | payer MEDICAID, SELFPAY ==
--- NOTE | 2025-01-11 12:50 | RAD_ITS ---
PROCEDURE: CERV SPINE 4 OR 5 VIEWS 01/11/2025 REASON FOR EXAM: CERVICAL SPRAIN TECHNIQUE: CERV SPINE 4 OR 5 VIEWS COMPARISON: None FINDINGS: Normal craniovertebral junction. Normal anterior atlantoaxial articulation. Normal odontoid process. Normal cervical lordosis. Normal vertebral bodies and posterior osseous elements. Normal disc space heights and vertebral endplates. Normal visualized intervertebral neuroforamina. Normal visualized soft tissue structures. RAD/Cerv Spine 4 or 5 Views IMPRESSION: Normal x-ray examination of the visualized cervical spine. Reading [facility]
== END | disposition home or self-care (01) ==
LOC: RAD 12:43
PROVIDERS: PCP Nurse Practitioner Family; Referring Provider Chiropractor; Visit Provider Chiropractor
DX: S13.4XXA Sprain of ligaments of cervical spine, initial encounter (principal)
CPT/HCPCS: 72050